=== PATIENT | female | born 1990 | race African-American/Black ===

== ENCOUNTER 2016-11-09 18:12 | Emergency (ER) | payer BC ==
[~2016-11-09] VITALS: Ht 175.3 cm; Wt 56.0 kg
[2016-11-09] MEDS ORDERED: SODIUM CHLORIDE 0.9% 1000ML 1,000 ML IV STA (18:16)
[2016-11-09 18:25] VITALS: TEMP 36.5; Ht 175.3 cm; Wt 56.0 kg
[2016-11-09 19:16] LABS: BASO % 0.3 %; BASO ABS # 0.02 K/uL (0-0.2); COMPLETE YES; EOS % 0.1 %; HEMATOCRIT 39.7 % (37-47); IG% 0.3 %; LYMPH % 15.8 %; LYMPH ABS # 1.24 K/uL (1.2-3.4); MEAN CELL VOLUME 87.4 fL (80-100); MEAN CORPUSCULAR HGB CONC 34.3 g/dl (32-36); MEAN PLATELET VOLUME 9.2 fL (7.4-10.4); MONO % 3.4 %; NEUT % 80.1 %; PLATELET COUNT 430 K/uL (130-400); RED BLOOD COUNT 4.54 M/uL (4.2-5.4); WHITE BLOOD COUNT 7.86 K/uL (4.8-10.8)
--- NOTE | 2016-11-09 19:22 | DIAGNOSTIC IMAGING REPORT ---
HEAD CT NONCONTRAST CT DOSE: 537.48 mGy.cm HISTORY: Head trauma. EVALUATE ALTERED MENTAL STATUS/WEAKNESS seizure. TECHNIQUE: Multiaxial CT images of the head were performed without the use of intravenous contrast. Automated exposure control was utilized for this study. Comparison: None. Findings: The paranasal sinuses and mastoid air cells are clear. The calvarium and skull base are intact. The ventricles and sulci are within normal limits. There is no mass, hematoma, midline shift, or acute infarct. Frontal scalp laceration. Impression: No acute intracranial abnormality. Frontal scalp laceration. Electronically signed by: Kimo Vega M.D. 11/09/2016 7:20 PM Dictated Date/Time: 11/09/2016 7:16 PM
[2016-11-09] MEDS ORDERED: LAMO150T32 PO (19:29)
[2016-11-09] MEDS ORDERED: SERT50TA PO (19:29)
[2016-11-09] MEDS ORDERED: LACO50TA PO (19:29)
[2016-11-09] MEDS ORDERED: LAMO100T16 PO (19:29)
[2016-11-09 19:34] LABS: BUN/CREATININE RATIO 25.1 (10-20); CALCIUM 9.5 mg/dl (8.5-10.1); CREATININE 0.76 mg/dl (0.60-1.20)
--- NOTE | 2016-11-09 20:39 | EMERGENCY ROOM VISIT NOTE ---
History Report prepared by Anabel: Arnold Barton Under the Supervision of: Dr. Jimmie Vo D.O. First contact with patient: 18:13 Stated Complaint: SEIZURE History of Present Illness The patient is a 26 year old female who presents to the Emergency Room with complaints of a sudden seizure beginning just prior to arrival. The patient states she has a history of seizures with her last episode at the end of September. She notes she was seizure-free for a year and a half prior to the episode in September. The patient states she takes seizure medication and follows with a neurologist, Dr. Fraser, in the area. She notes she has been drinking and eating well. The patient denies experiencing a lack of sleep. She states she has been taking her medications timely. The patient denies biting her tongue and losing control of her bowels or bladder. She denies experiencing recent illness, fever, and cough. The patient notes her last menstrual period was three days ago. As per EMS, the patient hit her forehead during the episode and had a normal post ictal period. He stated the patient's roommate heard a thump and found her on the ground. 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 Source of History: patient, EMS Onset: just prior to arrival Position: other (global) Quality: other (seizure) Timing: other (sudden) Associated Symptoms: No cough, No fevers Review of Systems See HPI for pertinent positives & negatives. A total of 10 systems reviewed and were otherwise negative. Past Medical & Surgical Medical Problems: (1) Seizure Family History Patient reports no known family medical history. 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 GENERAL: Non-toxic in appearance. INTEGUMENTARY: Warm, dry, and [place]. HEAD: Normocephalic. EYES: without scleral icterus or trauma. ENT/OROPHARYNX: clear and moist. LYMPHADENOPATHY/NECK: Is supple without lymphadenopathy or meningismus. RESPIRATORY: Lungs clear and equal. CARDIOVASCULAR: Regular rate and rhythm. GI/ABDOMEN: Soft and nontender. No organomegaly or pulsatile mass. No rebound or guarding. Normal bowel sounds. EXTREMITIES: Warm and well perfused. BACK: No CVA tenderness. NEUROLOGICAL: Intact without focal deficits. PSYCHIATRIC: normal affect. MUSCULOSKELETAL: Normally developed with good muscle tone. Medical Decision & Procedures ER Provider Diagnostic Interpretation: CT results as stated below per my review and radiologist interpretation: HEAD CT NONCONTRAST CT DOSE: 537.48 mGy.cm HISTORY: Head trauma. EVALUATE ALTERED MENTAL STATUS/WEAKNESS seizure. TECHNIQUE: Multiaxial CT images of the head were performed without the use of intravenous contrast. Automated exposure control was utilized for this study. Comparison: None. Findings: The paranasal sinuses and mastoid air cells are clear. The calvarium and skull base are intact. The ventricles and sulci are within normal limits. There is no mass, hematoma, midline shift, or acute infarct. Frontal scalp laceration. Impression: No acute intracranial abnormality. Frontal scalp laceration. Electronically signed by: Kimo Vega M.D. 11/09/2016 7:20 PM Laboratory Results 11/09/16 19:03 Red Blood Count 4.54, Mean Corpuscular Volume 87.4, Mean Corpuscular Hemoglobin 30.0, Mean Corpuscular Hemoglobin Concent 34.3, Mean Platelet Volume 9.2, Neutrophils (%) (Auto) 80.1, Lymphocytes (%) (Auto) 15.8, Monocytes (%) (Auto) 3.4, Eosinophils (%) (Auto) 0.1, Basophils (%) (Auto) 0.3, Neutrophils # (Auto) 6.30, Lymphocytes # (Auto) 1.24, Monocytes # (Auto) 0.27, Eosinophils # (Auto) 0.01, Basophils # (Auto) 0.02 11/09/16 19:03 Test 11/09/16 18:16 11/09/16 19:03 White Blood Count 7.86 K/uL (4.8-10.8) Red Blood Count 4.54 M/uL (4.2-5.4) Hemoglobin 13.6 g/dL (12.0-16.0) Hematocrit 39.7 % (37-47) Mean Corpuscular Volume 87.4 fL (80-100) Mean Corpuscular Hemoglobin 30.0 pg (25-34) Mean Corpuscular Hemoglobin Concent 34.3 g/dl (32-36) Platelet Count 430 K/uL (130-400) Mean Platelet Volume 9.2 fL (7.4-10.4) Neutrophils (%) (Auto) 80.1 % Lymphocytes (%) (Auto) 15.8 % Monocytes (%) (Auto) 3.4 % Eosinophils (%) (Auto) 0.1 % Basophils (%) (Auto) 0.3 % Neutrophils # (Auto) 6.30 K/uL (1.4-6.5) Lymphocytes # (Auto) 1.24 K/uL (1.2-3.4) Monocytes # (Auto) 0.27 K/uL (0.11-0.59) Eosinophils # (Auto) 0.01 K/uL (0-0.5) Basophils # (Auto) 0.02 K/uL (0-0.2) RDW Standard Deviation 39.6 fL (36.4-46.3) RDW Coefficient of Variation 12.3 % (11.5-14.5) Immature Granulocyte % (Auto) 0.3 % Immature Granulocyte # (Auto) 0.02 K/uL (0.00-0.02) Anion Gap 13.0 mmol/L (3-11) Est Creatinine Clear Calc Drug Dose 100.9 ml/min Estimated GFR () 127.2 Estimated GFR (Non- 109.8 BUN/Creatinine Ratio 25.1 (10-20) Calcium Level 9.5 mg/dl (8.5-10.1) Laboratory results as stated above per my review. Medications Administered Medications (Trade) Dose Ordered Sig/Pam Route Start Time Stop Time Status Last Admin Dose Admin Sodium Chloride (Nss 1000ml) 1,000 ml @ 999 mls/hr Q1H1M STAT IV 11/09/16 18:16 11/09/16 19:16 DC 11/09/16 19:31 999 MLS/HR ED Course 1813: Previous medical records were reviewed. The patient was evaluated in room B12A. A complete history and physical examination was performed. 1815: Ordered Sodium Chloride 1,000 ml @ 999 mls/hr IV. 2034: I used Dermabond to close a 2cm laceration on the patient's forehead. 2040: On reevaluation, the patient is doing well. I discussed the results and findings with the patient. She verbalized agreement of the treatment plan. The patient was discharged home. Medical Decision Differential diagnosis: Etiologies such as infection, hypoglycemia, electrolyte abnormalities, cardiac sources, intracerebral event, trauma, toxicologic, neurologic, as well as others were entertained. This is a 26-year-old female who presents to the ED with a chief complaint of a seizure. The patient has a history of seizures. Her last seizure was in late September. She sees a local neurologist here and she is currently on Lamictal and Vimpat. She denies missing any doses. She denies any other causes for lower threshold for seizure. She denies any recent illness or trauma. She did hit her forehead during this seizure. Prehospital blood sugar was 99. Patient denies any specific complaints. She has a small abrasion to the forehead otherwise no significant injury. Her exam is otherwise unremarkable. CT scan of the head did not show any acute intracranial pathology. The BUN is 19. CBC was normal. The patient was told results. She was hydrated with IV fluids. She is felt to be stable for discharge. Impression Primary Impression: Seizure Scribe Attestation The scribe's documentation has been prepared under my direction and personally reviewed by me in its entirety. I confirm that the note above accurately reflects all work, treatment, procedures, and medical decision making performed by me. Departure Information Dispostion Home / Self-Care Referrals Kat Chow M.D. (PCP) Forms HOME CARE DOCUMENTATION FORM, IMPORTANT VISIT INFORMATION Patient Instructions ED Seizure Recurrent, My [facility] Additional Instructions No driving. Follow-up with your neurologist. Increase daily fluid intake. Take your medicine as prescribed. Follow-up with your doctor for further care and evaluation in 1-2 days. Return to the emergency department for worsening or new symptoms or any concerns. You have been examined and treated today on an emergency basis only. This is not a substitute for, or an effort to provide, complete comprehensive medical care. It is impossible to recognize and treat all injuries or illnesses in a single emergency department visit. It is therefore important that you follow up closely with your doctor. Call as soon as possible for an appointment.
[2016-11-09 20:55] VITALS: BP 113/80; PULSE 103; O2SAT 100
== END 2016-11-09 20:58 | disposition home or self-care (01) ==
LOC: EDBD 18:12 → C.EDB 18:13
DX: G40.909 Epilepsy, unspecified, not intractable, without status epilepticus (principal); Z79.899 Other long term (current) drug therapy; Z88.8 Allergy status to other drugs, medicaments and biological substances